=== PATIENT | female | born 1990 | race Two or more races ===

== ENCOUNTER 2021-02-19 12:00 | Inpatient (IN) | payer OTHER ==
[~2021-02-19] VITALS: Ht 167.6 cm; Wt 81.6 kg
[2021-02-23] MEDS ORDERED: VALACYCLOVIR1000 MG (08:00)
[2021-02-23] MEDS ORDERED: PRENATAL + DHA1 EAC1 (08:01)
== END 2021-02-23 18:02 | disposition home or self-care (01) | DRG 807 ==
LOC: SURG-SUITE 02-21 19:33 → LDR 02-21 19:33 → SURG-SUITE 02-21 21:47 → OB/GYN 03-05 12:00
PROVIDERS: ADMIT Obstetrics & Gynecology; ATTEND Obstetrics & Gynecology
PROC: 10E0XZZ Delivery of Products of Conception, External Approach (ICD-10-PCS; principal; 2021-02-21)
PROC: 4A1HXFZ Monitoring of Products of Conception, Cardiac Rhythm, External Approach (ICD-10-PCS; 2021-02-21)
DX: O42.02 Full-term premature rupture of membranes, onset of labor within 24 hours of rupture (principal); Z37.0 Single live birth; O99.824 Streptococcus B carrier state complicating childbirth; Z3A.38 38 weeks gestation of pregnancy; Z20.822 Contact with and (suspected) exposure to COVID-19

== ENCOUNTER 2022-07-11 08:44 | Outpatient (CLI) | payer OTHER ==
[~2022-07-11 08:44] MED LIST: PRENATAL + DHA1 EAC1; VALACYCLOVIR1000 MG
== END 2022-07-11 09:55 | disposition home or self-care (01) ==
LOC: PRENATAL 08:44
PROVIDERS: ATTEND Obstetrics & Gynecology Maternal & Fetal Medicine
DX: O36.80X0 Pregnancy with inconclusive fetal viability, not applicable or unspecified (principal); Z3A.13 13 weeks gestation of pregnancy

== ENCOUNTER 2022-08-30 08:20 | Outpatient (CLI) | payer OTHER | END 2022-08-30 09:20 | disposition home or self-care (01) | LOC: PRENATAL 08:20 | PROVIDERS: ATTEND Obstetrics & Gynecology Maternal & Fetal Medicine | DX: O35.9XX0 Maternal care for (suspected) fetal abnormality and damage, unspecified, not applicable or unspecified (principal); O60.00 Preterm labor without delivery, unspecified trimester; Z3A.20 20 weeks gestation of pregnancy ==

== ENCOUNTER 2022-09-11 21:44 | Outpatient (CLI) | payer OTHER | END 2022-09-12 12:58 | disposition home or self-care (01) | LOC: OBS/DEL 21:44 | PROVIDERS: ATTEND Obstetrics & Gynecology | DX: O47.02 False labor before 37 completed weeks of gestation, second trimester (principal); O23.592 Infection of other part of genital tract in pregnancy, second trimester; B96.89 Other specified bacterial agents as the cause of diseases classified elsewhere; Z3A.22 22 weeks gestation of pregnancy; Z87.59 Personal history of other complications of pregnancy, childbirth and the puerperium ==

== ENCOUNTER 2022-10-03 14:55 | Outpatient (CLI) | payer OTHER | END 2022-10-03 15:00 | disposition home or self-care (01) | LOC: LAB 14:55 | PROVIDERS: ATTEND Obstetrics & Gynecology | DX: O60.02 Preterm labor without delivery, second trimester (principal); Z34.82 Encounter for supervision of other normal pregnancy, second trimester ==

== ENCOUNTER 2022-10-25 09:11 | Outpatient (CLI) | payer OTHER | END 2022-10-25 11:10 | disposition home or self-care (01) | LOC: PRENATAL 09:11 | PROVIDERS: ATTEND Obstetrics & Gynecology Maternal & Fetal Medicine | DX: O26.819 Pregnancy related exhaustion and fatigue, unspecified trimester (principal); O35.9XX0 Maternal care for (suspected) fetal abnormality and damage, unspecified, not applicable or unspecified; Z3A.28 28 weeks gestation of pregnancy ==

== ENCOUNTER 2022-12-29 17:53 | Inpatient (IN) | payer OTHER ==
[~2022-12-29] VITALS: Ht 167.6 cm; Wt 81.6 kg
[2022-12-29] MEDS ORDERED: VALTREX1000 MG PO (18:27)
== END 2022-12-31 17:42 | disposition home or self-care (01) | DRG 805 ==
LOC: LDR 17:53 → OB/GYN 12-30 09:39
PROVIDERS: ADMIT Obstetrics & Gynecology; ATTEND Obstetrics & Gynecology
PROC: 10E0XZZ Delivery of Products of Conception, External Approach (ICD-10-PCS; principal; 2022-12-29)
PROC: 4A1HXCZ Monitoring of Products of Conception, Cardiac Rate, External Approach (ICD-10-PCS; 2022-12-29)
PROC: 3E033VJ Introduction of Other Hormone into Peripheral Vein, Percutaneous Approach (ICD-10-PCS; 2022-12-29)
DX: O42.113 Preterm premature rupture of membranes, onset of labor more than 24 hours following rupture, third trimester (principal); O60.14X0 Preterm labor third trimester with preterm delivery third trimester, not applicable or unspecified; Z37.0 Single live birth; Z3A.36 36 weeks gestation of pregnancy; Z20.822 Contact with and (suspected) exposure to COVID-19